=== PATIENT | female | born 1940 | race Caucasian/White ===

== ENCOUNTER 2021-03-29 05:48 | Day surgery (SDC) | payer MEDICARE, OTHER ==
[2021-03-26 10:24] VITALS: BP 151/72
[2021-03-26 10:47] LABS: BASOPHILS % (AUTO) 1 % (0-1); EOSINOPHILS % (AUTO) 2 % (1-7); LYMPHOCYTES % (AUTO) 22 % (22-44); MEAN PLATELET VOLUME 9.2 fL (7.4-10.4); MONOCYTES % (AUTO) 9 % (2-9); NEUTROPHILS % (AUTO) 67 % (42-75); PLATELET COUNT 236 x10^3/uL (130-400); RED BLOOD COUNT 4.03 x10^6/uL (3.82-5.3); RED CELL DISTRIBUTION WIDTH 14.1 % (9.6-15.2)
[2021-03-26 10:53] LABS: ALANINE AMINOTRANSFERASE 22 U/L (12-78); ALBUMIN 4.1 g/dL (3.4-5.0); ANION GAP 4 mmol/L (5-15); CHLORIDE 106 mmol/L (98-107); CREATININE 0.88 mg/dL (0.55-1.02)
[2021-03-26 10:54] LABS: INTERNATIONAL NORMALIZED RATIO 0.94 (0.93-1.1); PROTHROMBIN TIME 10.1 Seconds (9.6-11.5)
[2021-03-26 10:56] LABS: ALKALINE PHOSPHATASE 78 U/L (45-117); BILIRUBIN,TOTAL 0.3 mg/dL (0.2-1.0); TOTAL PROTEIN 8.1 g/dL (6.4-8.2)
[~2021-03-29] VITALS: Ht 167.6 cm; Wt 51.0 kg
[~2021-03-29 05:48] MED LIST: ASCO-96 PO; DIGO125T10 PO; LEVO25TA4 PO; MAGN400T36 PO; VITA1TAB29 PO
[2021-03-29] MEDS ORDERED: CHLORHEXIDINE 15 ML UDC ONE (06:40)
[2021-03-29] MEDS ORDERED: HEPARIN 1,000 UNITS/ML, 10ML ONE (06:46)
[2021-03-29] MEDS ORDERED: INDOCYANINE GREEN 25 MG VIAL ONE (06:46)
[2021-03-29] MEDS ORDERED: EPINEPHRINE 1 MG/ML, 1ML ONE (06:46)
[2021-03-29] MEDS ORDERED: BUPIVACAINE/PF 0.25% ONE (06:46)
[2021-03-29] MEDS ORDERED: MIDAZOLAM 1 MG/ML, 2ML ONE (06:53)
[2021-03-29] MEDS ORDERED: FENTANYL PF 250 MCG/5ML ONE ×3 (06:53→15:19)
[2021-03-29] MEDS ORDERED: CEFOTETAN 2 GM in SODIUM CHLORIDE 0.9% 50 ML IVPB ONE (07:00)
[2021-03-29] MEDS ORDERED: LACTATED RINGERS 1,000 ML IV SCH (07:00)
[2021-03-29] MEDS ORDERED: CHLORHEXIDINE 15 ML UDC PO ONE (07:00)
[2021-03-29] MEDS ORDERED: LIDOCAINE-MPF 1%, 2ML INFIL ONE (07:00)
[2021-03-29 07:07] VITALS: BP 171/75
[2021-03-29] MEDS ORDERED: ACETAMINOPHEN 325 MG TABLET PO PRN (07:30)
[2021-03-29] MEDS ORDERED: PROMETHAZINE 25 MG/ML, 1ML IVPush PRN (07:30)
[2021-03-29] MEDS ORDERED: LORazepam 2 MG/ML, 1ML IVPush PRN (07:30)
[2021-03-29] MEDS ORDERED: LABETALOL 5MG/ML, 20ML IV PRN (07:30)
[2021-03-29] MEDS ORDERED: MEPERIDINE/PF 25MG/0.5ML IVPush PRN (07:30)
[2021-03-29] MEDS ORDERED: hydrALAzine 20 MG/ML, 1ML IV PRN (07:30)
[2021-03-29] MEDS ORDERED: HYDROmorphone 1 MG/ML, 1ML INJ IVPush PRN (07:30)
[2021-03-29] MEDS ORDERED: ONDANSETRON 2MG/ML, 2ML IVPush PRN (07:30)
[2021-03-29] MEDS ORDERED: OXYcodone 5 MG/5 ML ORAL.SOL UDC PO PRN (07:30)
[2021-03-29] MEDS ORDERED: METHOCARBAMOL 1,000 MG in DEXTROSE 5% 100 ML IV PRN (07:30)
[2021-03-29] MEDS ORDERED: ESMOLOL 100 MG/10 ML ONE (07:34)
[2021-03-29] MEDS ORDERED: KETOROLAC 30 MG/1 ML ONE (07:34)
[2021-03-29] MEDS ORDERED: hydrALAzine 20 MG/ML, 1ML ONE (07:34)
[2021-03-29] MEDS ORDERED: BUPIVACAINE/PF-EPI 0.25% 1:200K INFIL ONE (07:58)
[2021-03-29] MEDS ORDERED: INDOCYANINE GREEN 25 MG VIAL INJ ONE (07:58)
[2021-03-29] MEDS ORDERED: PROPOFOL 50 ML ONE (09:42)
[2021-03-29] MEDS ORDERED: FENTANYL PF 100 MCG/2ML ONE (10:30)
[2021-03-29] MEDS ORDERED: ACETAMINOPHEN 650 MG/20.3 ML UDC ONE (10:31)
[2021-03-29] MEDS ORDERED: OXYcodone 5 MG/5 ML ORAL.SOL UDC ONE (10:31)
[2021-03-29] MEDS: FENTANYL PF 100 MCG/2ML IV PRN ×2 (10:35→10:55)
[2021-03-29] MEDS ORDERED: PROPOFOL 10 MG/ML, 20ML ONE (12:13)
[2021-03-29] MEDS ORDERED: ROCURONIUM 10MG/ML,5ML ONE (12:13)
[2021-03-29] MEDS ORDERED: CEFAZOLIN 1,000 MG ONE (12:13)
[2021-03-29] MEDS ORDERED: SUCCINYLCHOLINE 20 MG/ML, 10ML ONE (12:13)
[2021-03-29] MEDS ORDERED: GLYCOPYRROLATE 0.2MG/1ML, 5ML ONE (12:13)
[2021-03-29] MEDS ORDERED: NEOSTIGMINE 1 MG/ML, 10ML ONE (12:13)
[2021-03-29] MEDS ORDERED: DEXAMETHASONE 4 MG/ML, 1ML ONE (12:13)
[2021-03-29] MEDS ORDERED: ONDANSETRON 2MG/ML, 2ML ONE (12:13)
[2021-03-29] MEDS ORDERED: HALOPERIDOL 5 MG/ML ONE (12:26)
[2021-03-29] MEDS ORDERED: PROMETHAZINE 25 MG SUPP PR PRN (12:30)
[2021-03-29] MEDS ORDERED: HALOPERIDOL 5 MG/ML IM PRN (12:30)
[2021-03-29] MEDS ORDERED: SCOPOLAMINE 1MG PATCH TD ONE (13:30)
[2021-03-29] MEDS ORDERED: PROCHLORPERAZINE 5 MG/ML, 2ML IVPush PRN (13:30)
== END 2021-03-29 16:10 | disposition home or self-care (01) ==
LOC: OUT 05:48 → EDSTATUS 12:30 → OUT 16:10
PROVIDERS: ATTEND Obstetrics & Gynecology
DX: C54.1 Malignant neoplasm of endometrium (principal); C77.5 Secondary and unspecified malignant neoplasm of intrapelvic lymph nodes; N83.292 Other ovarian cyst, left side; N83.8 Other noninflammatory disorders of ovary, fallopian tube and broad ligament; I11.0 Hypertensive heart disease with heart failure; I50.9 Heart failure, unspecified; E78.5 Hyperlipidemia, unspecified; E03.9 Hypothyroidism, unspecified; M81.0 Age-related osteoporosis without current pathological fracture; I25.5 Ischemic cardiomyopathy; Z79.01 Long term (current) use of anticoagulants; Z85.828 Personal history of other malignant neoplasm of skin; Z98.890 Other specified postprocedural states; Z20.822 Contact with and (suspected) exposure to COVID-19; Z87.891 Personal history of nicotine dependence; Z72.89 Other problems related to lifestyle
CPT/HCPCS: 36415; 38571; 58571; 74018; 80053; 85025; 85610; 85730; 86304; 86850; 86900; 86923; 88112; 88305; 88307; 88309; 88331; 88333; 88341; 88342; 88360; 93005; J0171; J0330; J0360; J0690; J1100; J1630; J1644; J1885; J2250; J2405; J2704; J2710; J2800; J3010; J7120; U0003; U0005

== ENCOUNTER 2021-04-26 06:51 | Day surgery (SDC) | payer MEDICARE, OTHER ==
[2021-04-23 14:33] LABS: BASOPHILS % (AUTO) 1 % (0-1); EOSINOPHILS % (AUTO) 7 % (1-7); LYMPHOCYTES % (AUTO) 23 % (22-44); MEAN CORPUSCULAR HEMOGLOBIN 31.9 pg (27.0-34.8); MEAN CORPUSCULAR HGB CONC 33.3 g/dL (32.4-35.8); MONOCYTES % (AUTO) 10 % (2-9); NEUTROPHILS % (AUTO) 59 % (42-75); PLATELET COUNT 226 x10^3/uL (130-400); RED BLOOD COUNT 3.86 x10^6/uL (3.82-5.3); RED CELL DISTRIBUTION WIDTH 13.8 % (9.6-15.2)
[2021-04-23 14:40] LABS: CHLORIDE 107 mmol/L (98-107)
[2021-04-23 14:43] LABS: INTERNATIONAL NORMALIZED RATIO 0.97 (0.93-1.1); PROTHROMBIN TIME 10.4 Seconds (9.6-11.5)
[2021-04-23 14:50] LABS: ALANINE AMINOTRANSFERASE 17 U/L (12-78); ALBUMIN 3.6 g/dL (3.4-5.0); ALKALINE PHOSPHATASE 72 U/L (45-117); ANION GAP 7 mmol/L (5-15); BILIRUBIN,TOTAL 0.3 mg/dL (0.2-1.0); CALCIUM 9.1 mg/dL (8.5-10.1); CREATININE 1.02 mg/dL (0.55-1.02); TOTAL PROTEIN 7.8 g/dL (6.4-8.2)
[~2021-04-26] VITALS: Ht 167.6 cm; Wt 50.4 kg
[2021-04-26] MEDS ORDERED: CHOL10003 PO (07:36)
[2021-04-26 07:41] VITALS: BP 134/82
[2021-04-26] MEDS ORDERED: LACTATED RINGERS 1,000 ML IV SCH (08:00)
[2021-04-26] MEDS ORDERED: CHLORHEXIDINE 15 ML UDC PO ONE (08:00)
[2021-04-26] MEDS ORDERED: CEFOTETAN PMX 2GM/50ML 50 ML IVPB ONE (08:00)
[2021-04-26] MEDS ORDERED: BUPIVACAINE/PF 0.5% ONE (08:24)
[2021-04-26] MEDS ORDERED: HEPARIN 5,000 UNITS/ML, 1ML ONE (08:37)
[2021-04-26] MEDS ORDERED: BUPIVACAINE/PF 0.25% ONE (08:37)
[2021-04-26] MEDS ORDERED: VISIPAQUE 270 MG/ML, 50ML BOTTLE ONE (08:37)
[2021-04-26] MEDS ORDERED: HEPARIN 1,000 UNITS/ML, 10ML ONE (08:39)
[2021-04-26] MEDS ORDERED: PROPOFOL 10 MG/ML, 20ML ONE ×2 (08:45→09:28)
[2021-04-26] MEDS ORDERED: FENTANYL PF 100 MCG/2ML ONE ×2 (08:45→10:44)
[2021-04-26] MEDS ORDERED: LIDOCAINE-MPF 2% ,5ML ONE (08:45)
[2021-04-26] MEDS ORDERED: DEXAMETHASONE 4 MG/ML, 1ML ONE (08:47)
[2021-04-26] MEDS ORDERED: SUCCINYLCHOLINE 20 MG/ML, 10ML ONE (08:47)
[2021-04-26] MEDS ORDERED: BUPIVACAINE/PF-EPI 0.25% 1:200K INFIL ONE (09:10)
[2021-04-26] MEDS ORDERED: HEPARIN 5,000 UNITS/ML, 1ML IV ONE (09:11)
[2021-04-26] MEDS ORDERED: VISIPAQUE 270 MG/ML, 50ML BOTTLE IV ONE (09:12)
[2021-04-26] MEDS ORDERED: PROMETHAZINE 25 MG/ML, 1ML IVPush PRN (10:00)
[2021-04-26] MEDS ORDERED: ACETAMINOPHEN 325 MG TABLET PO PRN (10:00)
[2021-04-26] MEDS ORDERED: MEPERIDINE/PF 25MG/0.5ML IVPush PRN (10:00)
[2021-04-26] MEDS ORDERED: hydrALAzine 20 MG/ML, 1ML IV PRN (10:00)
[2021-04-26] MEDS ORDERED: PROMETHAZINE 25 MG/ML, 1ML ONE (10:17)
[2021-04-26] MEDS ORDERED: MEPERIDINE/PF 25MG/ML,1ML ONE (10:37)
[2021-04-26] MEDS: FENTANYL PF 100 MCG/2ML IV PRN ×2 (10:46→10:55)
[2021-04-26] MEDS ORDERED: LABETALOL 5MG/ML, 20ML ONE (10:53)
[2021-04-26] MEDS: LABETALOL 5MG/ML, 20ML IV PRN ×2 (10:54→11:09)
[2021-04-26] MEDS ORDERED: ACETAMINOPHEN 650 MG/20.3 ML UDC ONE (10:59)
== END 2021-04-26 12:35 | disposition home or self-care (01) ==
LOC: OR 06:51 → OUT 12:35
PROVIDERS: ATTEND Obstetrics & Gynecology
DX: Z45.2 Encounter for adjustment and management of vascular access device (principal); C54.1 Malignant neoplasm of endometrium; I11.0 Hypertensive heart disease with heart failure; I50.9 Heart failure, unspecified; E03.9 Hypothyroidism, unspecified; I42.8 Other cardiomyopathies; M81.0 Age-related osteoporosis without current pathological fracture; Z20.822 Contact with and (suspected) exposure to COVID-19; Z98.890 Other specified postprocedural states; Z88.1 Allergy status to other antibiotic agents; Z88.2 Allergy status to sulfonamides; Z79.899 Other long term (current) drug therapy; Z79.01 Long term (current) use of anticoagulants; Z87.891 Personal history of nicotine dependence; Z90.710 Acquired absence of both cervix and uterus; Z80.1 Family history of malignant neoplasm of trachea, bronchus and lung; Z72.89 Other problems related to lifestyle
CPT/HCPCS: 36415; 36561; 71045; 76937; 77001; 80053; 85025; 85610; 85730; 86304; 93005; 93971; C1788; J0330; J1100; J1644; J2175; J2550; J2704; J3010; J7120; Q9966; U0003; U0005; 76000